=== PATIENT | male | born 1970 | race Caucasian/White ===

== ENCOUNTER 2018-11-23 16:47 | Observation (INO) ==
[~2018-11-23 16:47] MED LIST: SALINE LOCK IV FLUID XX ONE; TYLENOL PO PRN; ZOFRAN IV PRN
--- NOTE | 2018-11-23 17:43 | Diag Imaging Result Doc PS360 ---
EXAM: CHEST-2 VIEWS HISTORY: Chest Pain TECHNIQUE: Chest two views COMPARISON: 10/07/2017 FINDINGS: The lungs are well expanded. The heart is not enlarged. The vessels are not distended. There are no infiltrates. No pleural effusions. IMPRESSION: No acute abnormality. Electronically signed by Shiva Avery 11/23/2018 5:40 PM
[2018-11-23] MEDS ORDERED: MORPHINE IV PRN (18:04)
[2018-11-23] MEDS ORDERED: ASPIRIN PO ONE (18:07)
[2018-11-23] MEDS: LOPRESSOR PO SCH ×2 (18:08→21:20)
[2018-11-23] MEDS: NITROGLYCERIN TOP SCH ×2 (18:08→23:16)
[2018-11-23] MEDS ORDERED: ASPIRIN ONE ×2 (18:25→18:27)
[2018-11-23 18:37] LABS: INR 0.92; PROTIME 13.1 Seconds (11.0-16.0)
[2018-11-23 18:39] LABS: AGAP 9; ALBUMIN 4.5 g/dL (3.5-5.0); ALKALINE PHOSPHATASE 58 U/L (32-122); BUN 12 mg/dL (8-22); CALCIUM 9.2 mg/dL (8.8-10.2); CHLORIDE 106 mmol/L (98-107); COSMO 285; CREATININE 0.8 mg/dL (0.7-1.2); ESTIMATED GFR > 60; GLUCOSE 106 mg/dL (70-104); GOT 16 U/L (10-34); GPT 16 U/L (10-44); POTASSIUM 4.2 mmol/L (3.5-5.1); SODIUM 143 mmol/L (136-145); TCO2 28 mmol/L (25-35); TOTAL BILIRUBIN 0.52 mg/dL (0.20-1.00); TOTAL PROTEIN 6.8 g/dL (6.3-8.3)
[2018-11-23] MEDS ORDERED: AMBIEN PO PRN (18:54)
--- NOTE | 2018-11-23 19:00 | HISTORY AND PHYSICAL ---
CHIEF COMPLAINT: Palpitations, chest pain. HISTORY OF PRESENT ILLNESS: The patient is a 48-year-old white male followed in my medical practice. He states over the past 2 weeks he has had some difficulty with feeling like his heart is fluttering off and on, and he has had associated dyspnea and lack of energy and pronounced fatigue. Over the past 2 days, he has developed some pain in his right midsternal area with radiation to his neck and to the left axilla. He describes it as a tight feeling, and it will last hours at a time. He has felt bad and somewhat dizzy and felt facial flushing and hot in his face and some headache today. He had a nuclear stress test done on 05/08/2018 where he reached 85% of maximum heart rate, which was negative for ischemia, and EKG changes were not present. MEDICATIONS: Prior to admission, he had stopped his Toprol-XL 50 mg daily about 2 to 3 days ago, he says he simply ran out. He was supposed to be on Cozaar 50 mg daily, but never got that filled as he was given that prescription back in May 2018. He is taking Pepcid 40 mg daily. ALLERGIES: NKDA. PAST MEDICAL HISTORY: 1. GERD, diagnosed 2007. 2. Hypertension, diagnosed March 2016. 3. Hypotestosteronism, March 2015. 4. Migraine headaches. 5. ED. 6. Perennial allergic rhinitis. PAST SURGICAL HISTORY: 1. Lumbar surgery. 2. Left knee arthroscopic surgery. 3. UP3. FAMILY HISTORY: Notable for paternal grandfather with ID. Uncle with atrial fibrillation. Uncle with lung cancer and he was a smoker. Paternal grandfather with unknown type of cancer. No strokes. No diabetes in the family. Maternal grandfather with unknown cancer. Maternal grandmother with breast cancer. SOCIAL HISTORY: The patient lives in [place]. He is and he has 3 children. He works at [employer] for [employer]. He is a lifelong nonsmoker, has been a dipper of tobacco in the past. Rare alcohol usage. REVIEW OF SYSTEMS: Negative except as above. PHYSICAL EXAMINATION: VITAL SIGNS: Blood pressure 136/90, pulse 89. HEIGHT/WEIGHT: Weight 220, height 5 feet 9 inches tall. GENERAL: Well-developed, well-nourished white male, somewhat anxious appearing. SKIN: No rashes. HEENT: NC/AT. PERRL. EOMI. Sclerae clear. TMs normal. OP: No redness. NECK: No LA, [*], JVD, bruits. CARDIOVASCULAR: RRR without murmur. No ectopy appreciated. LUNGS: CTA. ABDOMEN: Soft, NT, ND. No mass. No HSM. CHEST WALL: Nontender to palpation. BACK: No CVA tenderness. GENITOURINARY AND RECTAL: Deferred. EXTREMITIES: No CCE. No calf tenderness. Peripheral pulses 2+ NEUROLOGIC: Cranial nerves 2-12 are intact. DIAGNOSTIC STUDIES: EKG is done in the office and revealed sinus rhythm with fairly pronounced anterior ST changes compared to previous EKG. ASSESSMENT: 1. Chest pains. 2. Palpitations. 3. Hypertension. 4. Abrupt cessation of beta ivonne. 5. Gastroesophageal reflux disease. 6. Hypotestosteronism. 7. Migraine headache. 8. Erectile dysfunction (ED). 9. Perennial allergic rhinitis. PLAN: At this time, we will admit the patient for 23-hour observation. Check CBC with differential, CMP, direct lipid profile, serial cardiac enzymes, troponin levels. Check a chest x- ray. We place the patient on aspirin daily, and we will give nitroglycerin paste topically, half- inch q.6 h. Give him Tylenol as needed for discomfort. I have spoken with Dr. Sanchez, and he will see the patient in consultation for cardiology CHRIS. cc: Nahum Vargas MD
[2018-11-24] MEDS: NITROGLYCERIN TOP SCH ×2 (05:14→05:16)
[2018-11-24 05:56] LABS: BASO# 0.01 X1000 (0.0-0.2); BASO% 0.2 % (0.0-0.8); EOS# 0.05 X1000 (0.0-0.7); EOS% 0.9 % (0.0-10.0); HEMATOCRIT 40.5 % (42.0-52.0); HEMOGLOBIN 13.5 g/dL (14.0-18.0); LYMPH# 2.31 X1000 (1.2-3.4); LYMPH% 41.8 % (20.5-51.1); MCH 31.2 PG (27-31); MCHC 33.3 g/dL (33-37); MCV 93.5 FL (81-99); MONO# 0.56 X1000 (0.11-0.59); MONO% 10.1 % (1.7-9.3); MPV 10.1 FL (7.4-10.4); NEUT# 2.59 X1000 (1.4-6.5); PLT 228 X1000 (130-400); RBC 4.33 XMIL (4.7-6.1); WBC 5.52 X1000 (4.8-10.8)
--- NOTE | 2018-11-24 06:55 | EKG Report ---
Test Performed on : 11/23/2018 4:58:22 PM Test Reason : cp Blood Pressure : / mmHG Vent. Rate : 070 BPM Atrial Rate : 070 BPM P-R Int : 156 ms QRS Dur : 094 ms QT Int : 408 ms P-R-T Axes : 035 014 009 degrees QTc Int : 440 ms Normal sinus rhythm. Normal ECG No previous ECGs available Confirmed by José Antonio Puga MD ([id number]) on 11/24/2018 9:20:19 PM
--- NOTE | 2018-11-24 06:57 | EKG Report ---
Test Performed on : 11/23/2018 6:20:07 PM Test Reason : CP Blood Pressure : / mmHG Vent. Rate : 057 BPM Atrial Rate : 057 BPM P-R Int : 144 ms QRS Dur : 092 ms QT Int : 432 ms P-R-T Axes : 051 002 -02 degrees QTc Int : 420 ms Sinus bradycardia. Otherwise normal ECG When compared with ECG of 23-NOV-2018 16:58, (Unconfirmed) No significant change was found Confirmed by José Antonio Puga MD ([id number]) on 11/24/2018 9:20:24 PM
[2018-11-24] MEDS ORDERED: PRILOSEC PO SCH (07:00)
--- NOTE | 2018-11-24 07:55 | EKG Report ---
Test Performed on : 11/24/2018 07:52:03 AM Test Reason : CP Blood Pressure : / mmHG Vent. Rate : 050 BPM Atrial Rate : 050 BPM P-R Int : 152 ms QRS Dur : 098 ms QT Int : 460 ms P-R-T Axes : 059 049 034 degrees QTc Int : 419 ms Sinus bradycardia. Otherwise normal ECG When compared with ECG of 23-NOV-2018 18:20, (Unconfirmed) T wave inversion no longer evident in Inferior leads Confirmed by José Antonio Puga MD ([id number]) on 11/24/2018 9:21:41 PM
[2018-11-24] MEDS: LOPRESSOR PO SCH (08:59)
[2018-11-24] MEDS ORDERED: ASPIRIN PO SCH (09:00)
[2018-11-24] MEDS ORDERED: PEPCID PO SCH (09:00)
[2018-11-24] MEDS ORDERED: MORPHINE ONE (10:33)
[2018-11-24] MEDS ORDERED: ANESTHESIA PB SET 88 IN 5742 ONE (10:33)
[2018-11-24] MEDS ORDERED: NS 2,000 ML ONE (10:33)
[2018-11-24] MEDS ORDERED: CLAVE TWINSITE 32 IN 11959 ONE (10:33)
[2018-11-24] MEDS ORDERED: VERSED ONE (10:33)
--- NOTE | 2018-11-24 10:50 | CARDIOLOGY CONSULTATION ---
DATE: 11/24/2018 HISTORY OF PRESENT ILLNESS: Mr. Reynaga is a 48-year-old, gentleman, who was admitted with 2 week symptoms of feeling palpitations, as well as some discomfort in his chest and in the midsternal area radiating to the neck and left axilla. It is not always related to exertion. However, he has noticed this more frequently with some dizziness as well. There is no obvious orthopnea, paroxysmal nocturnal dyspnea. He is otherwise very active. REVIEW OF SYSTEMS: A 14-point review of system was done. GI System: There is no history of nausea, vomiting, diarrhea. There is no history of hematemesis or melena. Central nervous system: No focal weakness to suggest a CVA, TIA. system: There is no dysuria or hematuria. Respiratory System: There is no history of cough, expectoration, hemoptysis. There is no history of fevers or chills. PAST MEDICAL HISTORY: 1. GERD. 2. Hypertension. 3. Hypotestosteronism. 4. Migraine. 5. Erectile dysfunction. 6. Lumbar surgery. 7. Left knee arthroscopy. FAMILY HISTORY: His paternal grandfather had myocardial infarction. Patient lives in [place]. Is with 3 children. Works at [employer]. Does not smoke. Has been a dipper of tobacco. PHYSICAL EXAMINATION: Vital Signs: Blood pressure was 136/90. Cardiovascular System: Normal jugular venous pressure. There no thyromegaly. No carotid bruit. First and second heart sounds were heard. There was no S3 or gallop. Respiratory System: Normal air entry. There is no crepitations or rhonchi. Abdomen: Soft, nontender. There was no guarding or rigidity. Bowel sounds were heard. Central nervous system: Alert and oriented. Moving all 4 extremities. Extremities: Examination of extremities revealed no pedal edema. HEENT: Atraumatic, normocephalic. Pupils were equal and reacting to light. Electrocardiogram revealed normal sinus rhythm, nonspecific ST-T changes. ASSESSMENT AND PLAN: 1. Mr. Deepak Reynaga is an 48-year-old, gentleman with history of hypertension, comes with complaints of having chest discomfort and palpitations. His stress test last year was normal. Cardiac enzymes were negative. However, given his recent symptoms, nonspecific ST-T changes, I have recommended that he undergo a left heart catheterization. Risks, benefits, and alternatives were explained. Patient will be set up for left heart catheterization. 2. Hypertension. Continue with his current medications. 3. Gastroesophageal reflux disease. Continue with his current medications. 4. We will add aspirin and beta-blockers to his medical regimen. Thank you for the consult. We will follow hospital course. cc: MD Nahum Mattson MD
--- NOTE | 2018-11-24 11:35 | CARDIAC CATH REPORT ---
PROCEDURE NAME: - PROCEDURE PERFORMED: Left heart catheterization and selective coronary angiography. INDICATION: Recurrent chest discomfort suspicious for unstable angina in patient with hypertension. ENTRY SITE: Right femoral artery. CATHETERS USED: 5-Bulgarian JL4, 3DRC, and angled pigtail. TECHNIQUE: After intravenous sedation with morphine and Versed, local anesthesia with lidocaine was applied over the right femoral artery. Arterial access was established with placement of a 5- Bulgarian sheath in the right femoral artery using modified Seldinger technique. Selective coronary angiography was performed followed by left heart catheterization and left ventriculography. Upon completion of the procedure, arterial sheath was removed from the right femoral artery and hemostasis facilitated with manual pressure. The patient tolerated the procedure without any apparent complications. FINDINGS: Hemodynamics: Aortic pressure 125/51 with a mean of 75. Left ventricular pressure 125 over EDP of 18. COMMENTS: On hemodynamics, there is no significant gradient across aortic valve demonstrated on pullback from the left ventricle. ANGIOGRAPHY: 1. Left ventriculogram: The left ventricle is of normal size without wall motion abnormality evident on GAUTHIER projection. Estimated left ventricular ejection fraction appears to be at least 65%. There is no significant mitral regurgitation. 2. Left main coronary: The left main coronary artery is angiographically normal. 3. Left anterior descending coronary: Left anterior descending coronary artery and its branches are free of significant coronary stenosis. 4. Left circumflex: The left circumflex coronary artery and its branches are free of significant coronary stenosis. 5. Right coronary: The dominant right coronary artery and its branches are free of significant coronary stenosis. CONCLUSIONS: 1. Normal left ventricular systolic function without wall motion abnormality evident on GAUTHIER projection. 2. Elevated left ventricular end-diastolic pressure suggests early left ventricular diastolic dysfunction. 3. Right dominant coronary anatomy with no significant coronary obstructive lesions. cc: MD Nahum Mena MD
--- NOTE | 2018-11-24 12:56 | EKG Report ---
Test Performed on : 11/24/2018 12:01:03 PM Test Reason : S/P C Blood Pressure : / mmHG Vent. Rate : 047 BPM Atrial Rate : 047 BPM P-R Int : 166 ms QRS Dur : 096 ms QT Int : 482 ms P-R-T Axes : 052 045 032 degrees QTc Int : 426 ms Sinus bradycardia. with sinus arrhythmia. Otherwise normal ECG When compared with ECG of 24-NOV-2018 07:52, (Unconfirmed) No significant change was found Confirmed by Vivien BENOIT, José Antonio Giordano ([id number]) on 11/24/2018 9:21:56 PM
--- NOTE | 2018-11-24 14:53 | ECHO REPORT ---
ORDER DATE: 11/24/2018 INTERPRETING PHYSICIAN: Dr. Lenard Sanchez ECHOCARDIOGRAPHIC MEASUREMENTS: Interventricular septum: 1.1 cm. Left ventricular posterior wall: 1.1 cm. Diastolic diameter: 5.0 cm. Right ventricle: cm. Left atrium: 3.4 cm. Aortic root: 3.6 cm. SUMMARY OF THE 2-DIMENSIONAL IMAGING: Normal left ventricular cavity size. Estimated ejection fraction of 65%. Definity was used to assess left ventricular systolic function. Aortic valve leaflets are trileaflet. Mitral valve is normal. Tricuspid valve was normal. Pulmonic valve was normal. There is no aortic stenosis. There is trace aortic regurgitation. There is mild mitral regurgitation. Trivial tricuspid regurgitation. There is trace pulmonary regurgitation. There is no pericardial effusion or obvious intracardiac mass or thrombus seen. cc: MD Nahum Mattson MD
[2018-11-24 17:03] VITALS: BP 122/76
== END 2018-11-24 17:00 | disposition home or self-care (01) ==
LOC: DIRADM → 3S 17:37
PROVIDERS: ADMIT Family Medicine; ATTEND Family Medicine
CPT/HCPCS: 71020; 71046; 80053; 80061; 82550; 83721; 83735; 84484; 85025; 85610; 85730; 93005; 93010; 93306; 93458; A9270; C8929; J2250; J2270; J7030; Q9957; Q9967